=== PATIENT | male | born 2000 | race Caucasian/White ===

== ENCOUNTER 2019-04-09 21:09 | Emergency (ER) | payer BC ==
[~2019-04-09] VITALS: Ht 175.3 cm; Wt 69.4 kg
[2019-04-09 21:38] VITALS: Ht 175.3 cm; Wt 69.4 kg
[2019-04-09 23:24] VITALS: BP 123/66
== END 2019-04-10 01:32 | disposition home or self-care (01) ==
LOC: ED 21:09
DX: T16.1XXA Foreign body in right ear, initial encounter (principal); W45.8XXA Other foreign body or object entering through skin, initial encounter; Y93.89 Activity, other specified; Y92.89 Other specified places as the place of occurrence of the external cause; Y99.8 Other external cause status
CPT/HCPCS: J2001